=== PATIENT | female | born 1990 | race Caucasian/White ===

== ENCOUNTER → 2018-01-27 | Outpatient (CLI) | payer MEDICARE, OTHER ==
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
[2018-01-27 14:07] LABS: HCT 39.3 % (34.0-46.0); HGB 12.8 gm/dL (11.4-16.0); MCH 28.2 pg (25.0-35.0); MCHC 32.6 g/dL (31.0-37.0); MCV 86.6 fL (80.0-100.0); Mean Platelet Volume 7.5; Platelet Count 249 k/uL (150-450); RBC 4.54 m/uL (3.80-5.40); WBC 7.6 k/uL (3.8-10.6)
[2018-01-27 14:12] LABS: ALT 29 U/L (9-52); AST 14 U/L (14-36); Albumin 3.8 g/dL (3.5-5.0); Alkaline Phosphatase 68 U/L (38-126); Anion Gap 8 mmol/L; Blood Urea Nitrogen 12 mg/dL (7-17); Calcium 9.2 mg/dL (8.4-10.2); Carbon Dioxide 27 mmol/L (22-30); Chloride 104 mmol/L (98-107); Cholesterol 149 mg/dL (<200); Glucose 88 mg/dL (74-99); HDL Cholesterol 49 mg/dL (40-60); LDL Cholesterol,Calculated 91 mg/dL (0-99); Potassium 4.6 mmol/L (3.5-5.1); Sodium 139 mmol/L (137-145); Total Bilirubin 0.8 mg/dL (0.2-1.3); Total Protein 6.3 g/dL (6.3-8.2); Triglycerides 44 mg/dL (<150)
[2018-01-27 15:19] VITALS: BP 104/72; PULSE 72; TEMP 98.2; BMI 61.6
[2018-01-27 18:39] LABS: Iron Saturation 33.83 (12.00-45.00)
[2018-01-27 18:44] LABS: Vitamin D 25 Hydroxy 17.6 ng/mL (30.0-100.0)
[2018-01-27 19:29] LABS: Hemoglobin A1C 5.1 % (4.0-6.0)
== END | disposition home or self-care (01) ==
LOC: BARWHC3 10:29
PROVIDERS: ATTEND Surgery Plastic and Reconstructive Surgery
DX: E66.01 Morbid (severe) obesity due to excess calories (principal); E88.81 Metabolic syndrome and other insulin resistance; E44.0 Moderate protein-calorie malnutrition; E21.1 Secondary hyperparathyroidism, not elsewhere classified; D50.9 Iron deficiency anemia, unspecified; E55.9 Vitamin D deficiency, unspecified; Z68.43 Body mass index [BMI] 50.0-59.9, adult; I11.9 Hypertensive heart disease without heart failure; G47.33 Obstructive sleep apnea (adult) (pediatric); K90.9 Intestinal malabsorption, unspecified; K74.1 Hepatic sclerosis; N19 Unspecified kidney failure; K50.90 Crohn's disease, unspecified, without complications
CPT/HCPCS: 84425; 80061; 80053; 82607; 82728; 82746; 83540; 83550; 84443; 85027; 82306; 83036; 93005; 36415; G0463; 99211

== ENCOUNTER 2021-12-29 06:52 | Day surgery (SDC) | payer MEDICARE, OTHER ==
[2021-12-25 14:29] VITALS: BMI 60.0
[2021-12-29] MEDS ORDERED: LACTATED RINGERS 1,000 ML IV SCH (06:54)
[2021-12-29] MEDS ORDERED: LIDOCAINE 1% (10MG/ML) FOR IV START INTRADERMA ONE (07:17)
[2021-12-29 07:28] LABS: Glucose,Whole Blood 98 mg/dL (75-99)
[2021-12-29 07:29] VITALS: TEMP 97.3
[2021-12-29] MEDS ORDERED: PROPOFOL 10 MG/ML 20 ML VIAL IV ONE (07:35)
[2021-12-29] MEDS ORDERED: MIDAZOLAM 2 MG/2 ML VIAL ONE (07:35)
[2021-12-29] MEDS ORDERED: GLYCOPYRROLATE 0.2 MG/ML 2 ML VIAL ONE (07:35)
[2021-12-29] MEDS ORDERED: KETAMINE 10 MG/ML 20 ML VIAL ONE (07:35)
[2021-12-29] MEDS ORDERED: LIDOCAINE 2% INJ 20 MG/ML (2 ML VIAL) ONE (07:35)
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
--- NOTE | 2021-12-29 07:51 | P.PCN ---
Date of Procedure: 12/29/21 Description of Procedure: PREOPERATIVE DIAGNOSIS: Gastroesophageal reflux disease. Morbid obesity. POSTOPERATIVE DIAGNOSIS: Gastroesophageal reflux disease. Morbid obesity. Gastritis. Gastroparesis OPERATION: Esophagogastroduodenoscopy with biopsies along antrum and duodenum SURGEON: Sulema Concepcion MD ANESTHESIA: MAC. INDICATIONS: The patient is a 31-year-old female who presents with reflux disease. Benefits and risks of the procedure were described. Informed consent was obtained. DESCRIPTION: The patient was brought into the endoscopy suite and laid in the left lateral decubitus position. An Olympus gastroscope was passed along the posterior oropharynx down to the distal esophagus where the squamocolumnar junction was encountered at 35 cm from the incisors. The stomach was entered and no bile reflux was found. Additional findings are listed below. Biopsies with cold forceps were obtained of the antrum. The first through third portion of the duodenum was examined. Retroflexion of the scope confirmed for Hill grade was obstructed by moderate retained food. The squamocolumnar junction demonstrated LA grade A erosive esophagitis. The stomach was desufflated. The patient tolerated the procedure well. FINDINGS: Squamocolumnar junction 35 cm from the incisors. Diaphragmatic hiatus at 35 cm. Moderate retained food within stomach consistent with gastroparesis Hill grade lower esophageal valve unable to determine due to moderate retained food LA grade A erosive esophagitis. Biopsies obtained for celiac disease of duodenum Chronic gastritis RECOMMENDATIONS: Upper endoscopy as needed. Reglan 10 mg 3 times daily Plan - Discharge Summary New Discharge Prescriptions: New Metoclopramide [Reglan] 10 mg PO ACHS #30 tab Continue Furosemide [Lasix] 20 mg PO DAILY Cholecalciferol (Vitamin D3) [Vitamin D3 (125 MCG = 5,000 IU)] 5,000 mcg PO DAILY Ferrous Sulfate [Iron (65 MG Elemental)] 325 mg PO DAILY Omeprazole 20 mg PO DAILY Nortriptyline [Pamelor] 25 mg PO HS acetaZOLAMIDE [Diamox Sequels] 500 mg PO BID metFORMIN HCL 500 mg PO BID Rimegepant Sulfate [Nurtec Odt] 75 mg PO DAILY Fluticasone Nasal [place] [Flonase Nasal [place]] 1 spray EA NOSTRIL DAILY Discontinued Pantoprazole [Protonix] 40 mg PO BID Discharge Medication List Furosemide [Lasix] 20 mg PO DAILY 03/24/18 [History] Cholecalciferol (Vitamin D3) [Vitamin D3 (125 MCG = 5,000 IU)] 5,000 mcg PO DAILY 11/26/21 [History] Ferrous Sulfate [Iron (65 MG Elemental)] 325 mg PO DAILY 11/26/21 [History] Fluticasone Nasal [place] [Flonase Nasal [place]] 1 spray EA NOSTRIL DAILY 11/26/21 [History] Nortriptyline [Pamelor] 25 mg PO HS 11/26/21 [History] Omeprazole 20 mg PO DAILY 11/26/21 [History] Rimegepant Sulfate [Nurtec Odt] 75 mg PO DAILY 11/26/21 [History] acetaZOLAMIDE [Diamox Sequels] 500 mg PO BID 11/26/21 [History] metFORMIN HCL 500 mg PO BID 11/26/21 [History] Metoclopramide [Reglan] 10 mg PO ACHS #30 tab 12/29/21 [Rx] Follow up [facility]ment(s[facility]Ref[facility] [place] [facility] - [facility]22 Patient Instructions/Handouts: Gastroparesis (GEN), Diabetic Gastroparesis (GEN) Discharge Disposition: HOME SELF-CARE
[2021-12-29 08:13] VITALS: BP 119/77; PULSE 89; RESP 20
== END 2021-12-29 08:23 | disposition home or self-care (01) ==
LOC: ORWHC2ENDO 06:52
PROVIDERS: ATTEND Surgery Plastic and Reconstructive Surgery
DX: K21.00 Gastro-esophageal reflux disease with esophagitis, without bleeding (principal); K29.50 Unspecified chronic gastritis without bleeding; K31.84 Gastroparesis; E11.43 Type 2 diabetes mellitus with diabetic autonomic (poly)neuropathy; E66.01 Morbid (severe) obesity due to excess calories; F70 Mild intellectual disabilities; I10 Essential (primary) hypertension; Z82.49 Family history of ischemic heart disease and other diseases of the circulatory system; Z83.3 Family history of diabetes mellitus; Z79.84 Long term (current) use of oral hypoglycemic drugs
CPT/HCPCS: 43239; 81025; 88305; J2250; J2704; J2001

== ENCOUNTER → 2022-01-14 | Outpatient (CLI) | payer MEDICARE, OTHER | END | disposition home or self-care (01) | LOC: LABPAT 14:45 | PROVIDERS: ATTEND Surgery Plastic and Reconstructive Surgery | DX: Z01.812 Encounter for preprocedural laboratory examination (principal); E08.8 Diabetes mellitus due to underlying condition with unspecified complications | CPT/HCPCS: 36415; 83036 ==

== ENCOUNTER → 2022-01-14 | Outpatient (CLI) | payer MEDICARE, OTHER ==
[2022-01-14 14:09] VITALS: BP 143/83; PULSE 90; TEMP 98.4; BMI 63.5
--- NOTE | 2022-01-14 14:33 | P.BASOAP ---
Subjective Progress Note Date: 01/14/22 EKG is abnormal. Labs reviewed. She is looking into the sleeve. She has gastroparesis. Needs Hgb A1c. Objective - Vital Signs Vital signs: Vital Signs Temp 98.4 F 01/14/22 13:49 Pulse 90 01/14/22 13:49 Resp BP 143/83 01/14/22 13:49 Pulse Ox FiO2 Intake & Output 01/13/22 01/14/22 01/14/22 18:59 06:59 18:59 Weight 137.892 kg Assessment/Plan Plan: Date: 01/14/22 Initial Weight: 133.81 kg Initial BMI: 61.6 Current Weight: 137.892 kg Current BMI: 63.5 Type of Surgery: Total Volume in Band: Previous Volume: Volume Removed: Volume Added: Band Size:
== END | disposition home or self-care (01) ==
LOC: BARWHC3 13:49
PROVIDERS: ATTEND Surgery Plastic and Reconstructive Surgery
DX: R94.31 Abnormal electrocardiogram [ECG] [EKG] (principal)
CPT/HCPCS: 99211

== ENCOUNTER → 2022-04-20 | Outpatient (CLI) | payer MEDICARE, OTHER ==
[2022-04-20 11:06] VITALS: BMI 62.4
== END | disposition home or self-care (01) ==
LOC: BARWHC3 08:36
PROVIDERS: ATTEND Surgery Plastic and Reconstructive Surgery
DX: E66.01 Morbid (severe) obesity due to excess calories (principal); Z71.3 Dietary counseling and surveillance
CPT/HCPCS: 97804

== ENCOUNTER 2022-10-19 09:30 | Inpatient (IN) | payer MEDICARE, OTHER ==
--- NOTE | 2022-10-02 15:01 | P.PN ---
Progress Note - Text Progress Note Date: 10/02/22 Patient notified personally by me for change of date of surgery from October 19.
[2022-11-16] MEDS ORDERED: ceFAZolin 3 GM in SODIUM CHLORIDE 0.9% 100 ML IVPB PRN (05:00)
[2022-11-16] MEDS ORDERED: ENOXAPARIN 40 MG/0.4 ML SYRINGE SQ PRN (07:00)
[2022-11-16] MEDS ORDERED: CHLORHEXIDINE GLUCONATE 15 ML CUP MUCOUS MEM PRN (07:00)
[2022-11-16] MEDS ORDERED: PANTOPRAZOLE 40 MG/10 ML VIAL IVP PRN (07:00)
[2022-11-16] MEDS ORDERED: ONDANSETRON 4 MG/2 ML VIAL IVP ONE (08:24)
[2022-11-16] MEDS ORDERED: DEXAMETHASONE SOD PHOSPHATE 4 MG/ML 1 ML VIAL IV ONE (08:24)
[2022-11-16] MEDS ORDERED: HYDROmorphone 0.5 MG/0.5 ML SYRINGE IVP PRN (08:24)
[2022-11-16] MEDS ORDERED: LACTATED RINGERS 1,000 ML IV ONE ×3 (09:45→12:01)
[2022-11-16] MEDS ORDERED: SCOPOLAMINE 1 MG/72 HR PATCH TRANSDERM STA (09:57)
[2022-11-16 10:14] LABS: Glucose,Whole Blood 100 mg/dL (70-110)
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
[2022-11-16] MEDS ORDERED: HYDROmorphone (PF) 1 MG/ML ONE (11:07)
[2022-11-16] MEDS ORDERED: ROCURONIUM 10 MG/ML (5 ML VIAL) IV ONE (11:07)
[2022-11-16] MEDS ORDERED: PROPOFOL 10 MG/ML 20 ML VIAL IV ONE (11:07)
[2022-11-16] MEDS ORDERED: KETOROLAC 15 MG/ML 1 ML VIAL ONE (11:07)
[2022-11-16] MEDS ORDERED: GLYCOPYRROLATE 0.2 MG/ML 2 ML VIAL ONE (11:07)
[2022-11-16] MEDS ORDERED: MIDAZOLAM 2 MG/2 ML VIAL ONE (11:07)
[2022-11-16] MEDS ORDERED: fentaNYL (PF) 50 MCG/ML 2 ML AMP ONE (11:07)
[2022-11-16] MEDS ORDERED: LIDOCAINE 2% INJ 20 MG/ML (2 ML VIAL) ONE (11:07)
[2022-11-16] MEDS ORDERED: SUCCINYLCHOLINE CHLORIDE 200 MG/10 ML VIAL IV ONE (11:07)
[2022-11-16] MEDS ORDERED: NEOSTIGMINE 1 MG/ML 10 ML VIAL ONE (11:07)
[2022-11-16] MEDS ORDERED: BUPIVACAIN-EPI 0.25%-1:200,000 30 ML VIAL SQ ONE ×2 (11:32→11:43)
[2022-11-16] MEDS ORDERED: NALOXONE 0.4 MG/ML 1 ML VIAL IV PRN ×2 (13:33→13:37)
[2022-11-16] MEDS ORDERED: HYDROmorphone 1 MG/ML 1 ML SYRINGE IVP PRN (13:34)
[2022-11-16] MEDS ORDERED: SODIUM CHLORIDE 0.9% 2,000 ML IV ONE (13:38)
--- NOTE | 2022-11-16 13:45 | P.OP ---
Date of Procedure: 11/16/22 Description of Procedure: SURGEON: WILLAM DENISE MD PREOPERATIVE DIAGNOSES: 1. Morbid obesity due to excess calories. 2. Body mass index reduced 69.6 to 64.8 3. Chronic lower back pain. 4. Hypertensive heart disease 5. Obstructive sleep apnea. 6. Generalized anxiety disorder 7. Depressive disorder 8. Osteoarthritis, generalized 9. Dietary surveillance and counseling. 10. Family history of morbid obesity. 11. Family history of diabetes type 1. 12. Family history of diabetes type 2. 13. Family history of heart attack. 14. Vitamin D deficiency 15. Cognitive delay 16. Lymphedema 17. Diabetes type II non-insulin dependent 18. Migraines 19. Gastroparesis 20. Iron deficiency 21. Zinc deficiency 22. Hyperparathyroidism 23. Hypoalbuminemia 24. Nicotine exposure POSTOPERATIVE DIAGNOSES: 1. Morbid obesity due to excess calories. 2. Body mass index reduced 69.6 to 64.8 3. Chronic lower back pain. 4. Hypertensive heart disease 5. Obstructive sleep apnea. 6. Generalized anxiety disorder 7. Depressive disorder 8. Osteoarthritis, generalized 9. Dietary surveillance and counseling. 10. Family history of morbid obesity. 11. Family history of diabetes type 1. 12. Family history of diabetes type 2. 13. Family history of heart attack. 14. Vitamin D deficiency 15. Cognitive delay 16. Lymphedema 17. Diabetes type II non-insulin dependent 18. Migraines 19. Gastroparesis 20. Iron deficiency 21. Zinc deficiency 22. Hyperparathyroidism 23. Hypoalbuminemia 24. Nicotine exposure OPERATION: 1. Robotic assisted daVinci Xi laparoscopic sleeve gastrectomy with 40-Stateless bougie, multiport. 2. Intraoperative esophagogastroduodenoscopy. ANESTHESIA: Gen. local anesthetic ESTIMATED BLOOD LOSS: 50 mL SPECIMENS REMOVED: Sleeve gastrectomy COMPLICATIONS: None. FINDINGS: 1. Negative intraoperative esophagogastrojejunoscopy leak test. 2. No hepatomegaly and no large hiatus hernia. 3. Total of 6 staplers used including 1 - 60 mm black robot rcik, 1 - 60 mm green robot, 3 - 60 mm blue robot, 1 - 60 mm white loads used to create the gastric sleeve. 4. Sleeve gastrectomy, 27 x 6 cm INDICATIONS: Maty Madden is a 32-year-old female who presents with lifelong morbid obesity. She has developed type II diabetes, lymphedema, including obstructive sleep apnea. She has new diagnosis of gastroparesis. She is looking into the sleeve gastrectomy. At her of 4 foot 10, her ideal body weight is 118 pounds. Her highest weight is 332 pounds. Her body mass index is 69.6. She is 214 pounds overweight. All surgical options for morbid obesity had been described using the [place] bariatric surgery collaborative comorbidity resolution including complication risk score. A second-generation bariatric consent form was described in detail including the possibility of protein malnutrition, leaks, gastric stricture, venous thrombosis, gastroesophageal reflux disease, need for further surgery for which she demonstrated understanding. Benefits and risks of the procedure were described at length. Informed consent was obtained. DESCRIPTION: The patient was brought into the operating room theater. Preoperatively she had received Lovenox subcutaneously for DVT prophylaxis. Additionally she had Peridex oral solution as an oral decontaminant. After general induction, the abdomen was prepped and draped in standard sterile fashion. An Ioban draping was placed along the abdomen. A robotic da Venu Xi system was prepped and primed. At 15 cm from the xiphoid, proposed port sites were marked with indelible marker along the anterior axillary line bilaterally, mid axillary line bilaterally with each ports were marked 10 to 15 cm from each other. The robotic stapler port was marked for the right midclavicular line. A 5 mm 0 degrees laparoscopic trocar entry was performed along the left upper quadrant. The abdomen was insufflated to 15 mmHg pressure was tolerated well. Diagnostic laparoscopy demonstrated no injury to bowel, viscera, or mesentery. No evidence of large hiatus hernia was identified. The liver edge was sharp consistent with 2 week low-carb high-protein diet. A 8 mm port was placed along the left upper abdominal wall after exchanging the 5 mm port. A separate 8 mm port was placed along the left lateral abdominal wall. Please note that the ports were placed at least 20 cm away from the target anatomy. Care was taken to check each robotic arms were safely away from collision with the bed or the patient. At the epigastrium, a medium sized Marquez liver retractor was placed under direct visualization with the Iron Proofsheet Corrector placed under the right shoulder of the patient. Next, 12-mm robot stapler port was placed along the right upper quadrant. The camera 8-mm port was maintained along the epigastrium. The patient was repositioned in reverse Trendelenburg position at 21-degrees after lowering the bed. The robot was docked along the left side of the patient. Using a grasper for arm 4, a vessel sealer for arm 3, including grasper for arm 1, the robotic system was docked and primed as described. Instruments were interchanged by the engineer third assistant for stapler loads. The camera was placed at 30- degrees down. I had sat at the console. The pylorus was identified and 6 cm proximally along the greater curvature of the stomach, the short gastrics were mobilized upwards to the angle of His using a vessel sealer. Hemostasis was excellent during this portion of the procedure. Next, the upper pole of the stomach was adherent to the left lucia, which was gently dissected free using atraumatic grasper. I went to the head of the bed and placed 40-Stateless blunt bougie into the s tomach. The bougie was readjusted by the nurse heel dipper. Robotic stapler black load 60 mm 1 followed by green 60 mm x 1, blue 60 mm x 3, white 60 mm x 1 loads were used to create the sleeve. Initial firing was across the antrum of the stomach towards the angle of His. The staple line was linear without corkscrewing. The space from the angularis incisura of the sleeve was approximately 4 cm. I then went to the head of the bed to perform the intraoperative esophagogastroduodenoscopy leak test. The bougie was withdrawn. The upper pole of the stomach was bathed using normal saline solution. The scope was withdrawn with careful inspection along the staple line for which no leaks were found along the entire length. Additionally,the sleeve was completely hemostatic without any encroachment along the angularis incisura. Its topology was a soft "J". No stricture was encountered upon placement of the scope. The GI tract was desufflated. The patient tolerated this portion of the procedure well. The scope was completely withdrawn. The robot was undocked. I then rescrubbed into case, whereby the irrigation fluid was aspirated from the abdominal cavity. Tisseel fibrin sealant was placed along the entire staple length. Once dried the Marquez liver retractor was removed. The skin had moderate oozing from incisions increasing her blood loss. Staple line was hemostatic. Attention was now brought to removal of the specimen. The distal end of the sleeve gastrectomy specimen was brought out through the 12 mm port at the left upper quadrant. The specimen was gently removed en total. No contamination had occurred during this process. All instruments and pneumoperitoneum including irrigation fluid was removed from the abdominal cavity. The 12 mm port site was closed using 0-Vicryl and Stefan Ballard and irrigated with diluted hydrogen peroxide. The final incisions were closed using subcuticular interrupted suture of 4-0 Monocryl. Exofin was applied to the skin once the skin had been cleansed. OptiFoam dressing was placed along the stomach extraction site. The sleeve specimen was measured and checked also for leaks which none were found. At the end of the procedure, needle, sponge, and instrument count was verified correct by the surgical instrument repair specialist. The patient was taken to the postanesthesia care unit in stable condition. She had tolerated the procedure well. Intraoperative films and findings were reviewed with the patient's family.
[2022-11-16] MEDS ORDERED: SODIUM CHLORIDE 0.9% 1,000 ML IV ONE ×2 (14:29)
[2022-11-16] MEDS: LACTATED RINGERS 1,000 ML IV SCH (15:29)
[2022-11-16] MEDS: METOCLOPRAMIDE 5 MG/ML 2 ML VIAL IVP SCH ×3 (15:37→23:41)
[2022-11-16] MEDS: 0.9% NACL WITH KCL 20 MEQ/L 1,000 ML IV SCH ×2 (15:41→23:38)
[2022-11-16] MEDS: fentaNYL PCA 500 MCG/50 ML BAG IV SCH (15:41)
[2022-11-16] MEDS: ALBUTEROL NEBULIZED 2.5 MG/3 ML INHALATION SCH ×2 (16:28→21:43)
[2022-11-16 16:39] LABS: Glucose,Whole Blood 134 mg/dL (70-110)
[2022-11-16] MEDS ORDERED: DEXAMETHASONE SOD PHOSPHATE 10 MG/ML 1 ML VIAL IVP ONE (17:00)
[2022-11-16] MEDS: ACETAMINOPHEN IV (For NPO) 1,000 MG in EMPTY BAG 1 BAG IVPB SCH ×2 (18:12→23:39)
[2022-11-16] MEDS: ONDANSETRON 4 MG/2 ML VIAL IVP SCH ×2 (18:13→23:41)
[2022-11-16] MEDS: SIMETHICONE 40 MG/0.6 ML DROPS 2,000 MG/30 ML BOTTLE PO SCH ×2 (18:13→23:39)
[2022-11-16] MEDS ORDERED: ceFAZolin 3 GM in SODIUM CHLORIDE 0.9% 100 ML IVPB SCH (19:00)
[2022-11-16] MEDS: PANTOPRAZOLE 40 MG/10 ML VIAL IV SCH (21:04)
[2022-11-16] MEDS: DEXAMETHASONE SOD PHOSPHATE 4 MG/ML 1 ML VIAL IVP SCH (23:41)
[2022-11-16] MEDS: PATIENT'S OWN (Rimegepant Sulfate [Nurtec Odt] 75 MG Tablet) PO SCH (23:54)
[2022-11-17] MEDS: ACETAMINOPHEN IV (For NPO) 1,000 MG in EMPTY BAG 1 BAG IVPB SCH ×2 (05:29→12:15)
[2022-11-17] MEDS: METOCLOPRAMIDE 5 MG/ML 2 ML VIAL IVP SCH ×2 (05:30→12:16)
[2022-11-17] MEDS: DEXAMETHASONE SOD PHOSPHATE 4 MG/ML 1 ML VIAL IVP SCH ×2 (05:30→12:16)
[2022-11-17] MEDS: ONDANSETRON 4 MG/2 ML VIAL IVP SCH ×2 (05:30→12:16)
[2022-11-17] MEDS: 0.9% NACL WITH KCL 20 MEQ/L 1,000 ML IV SCH (05:32)
[2022-11-17 07:16] VITALS: RESP 17
[2022-11-17] MEDS ORDERED: 0.9% NACL WITH KCL 20 MEQ/L 1,000 ML IV SCH (08:00)
[2022-11-17] MEDS: ALBUTEROL NEBULIZED 2.5 MG/3 ML INHALATION SCH ×3 (08:36→15:51)
[2022-11-17] MEDS ORDERED: ENOXAPARIN 40 MG/0.4 ML SYRINGE SQ SCH (09:00)
[2022-11-17] MEDS ORDERED: FLUTICASONE 50MCG/SPRAY NASAL 16GM EA NOSTRIL SCH (09:00)
[2022-11-17] MEDS: PANTOPRAZOLE 40 MG/10 ML VIAL IV SCH (09:32)
[2022-11-17] MEDS: SIMETHICONE 40 MG/0.6 ML DROPS 2,000 MG/30 ML BOTTLE PO SCH ×2 (09:32→12:17)
[2022-11-17] MEDS: LACTATED RINGERS 1,000 ML IV SCH (09:33)
[2022-11-17] MEDS: PATIENT'S OWN (Rimegepant Sulfate [Nurtec Odt] 75 MG Tablet) PO SCH (09:33)
[2022-11-17 10:47] LABS: Basophils # (A) 0.01 X 10*3/uL (0.00-0.10); Basophils % (A) 0.1 %; Eosinophils # (A) 0 X 10*3/uL (0.04-0.35); Eosinophils % (A) 0 %; HCT 41.5 % (37.2-46.3); HGB 12.8 g/dL (12.0-15.0); Immature Grans, Automated 0.2 %; Lymphocytes # (A) 0.83 X 10*3/uL (0.90-5.00); Lymphocytes % (A) 6.6 %; MCH 27.7 pg (27.0-32.0); MCHC 30.8 g/dL (32.0-37.0); MCV 89.8 fL (80.0-97.0); Mean Platelet Volume 11.9 fL (9.5-12.2); Monocytes # (A) 0.21 X 10*3/uL (0.20-1.00); Monocytes % (A) 1.7 %; NRBC Per 100 WBC 0 /100 WBCS (0.0-0.0); Neutrophils # (A) 11.54 X 10*3/uL (1.80-7.70); Neutrophils % (A) 91.4 %; Platelet Count 223 X 10*3/uL (140-440); RBC 4.62 X 10*6/uL (4.10-5.20); RDW 13.8 % (11.5-14.5); WBC 12.62 X 10*3/uL (4.50-10.00)
[2022-11-17 10:57] LABS: African American GFR (CKD) 138.8 (60.0-200.0); Anion Gap 13.6 mmol/L (10.00-18.00); Blood Urea Nitrogen 5.4 mg/dL (9.0-27.0); Calcium 8.5 mg/dL (8.7-10.3); Carbon Dioxide 19.4 mmol/L (20.0-27.5); Non-African American GFR(CKD) 119.8 (60.0-200.0); Potassium 4.4 mmol/L (3.5-5.5)
[2022-11-17 10:58] LABS: Magnesium 1.7 mg/dL (1.5-2.4)
--- NOTE | 2022-11-17 11:46 | FL ---
EXAMINATION TYPE: FL UGI DATE OF EXAM: 11/17/2022 10:51 AM CLINICAL INDICATION:Male, 31 years old with history of Post Op Bariatric Surgery; COMPARISON: CT 08/05/2022 TECHNIQUE: Limited single contrast UGI study is performed with Isovue-370. 50 cc of Isovue-370 Fluoroscopic time: 4 seconds Fluoroscopic images: 0 Radiographs taken: 50 DAP: 4004.46 TECHNIQUE: Limited single contrast UGI study is performed with Isovue-370. FINDINGS: The stomach demonstrates a postsurgical morphology. No extravasation of contrast identifie d. No evidence of mass or ulcer disease. The duodenal bulb and sweep are unremarkable. IMPRESSION: Postsurgical changes without evidence of contrast extravasation.
[2022-11-17 12:24] VITALS: BMI 64.8
[2022-11-17 14:56] VITALS: BP 123/61; TEMP 97.3
[2022-11-17] MEDS: fentaNYL PCA 500 MCG/50 ML BAG IV SCH (15:11)
--- NOTE | 2022-11-17 15:41 | P.DS ---
Providers Date of admission: 11/16/22 09:11 Expected date of discharge: 11/17/22 Attending physician: Sulema Concepcion Primary care physician: Oswaldo Salamanca Hospital Course: Discharge diagnosis 1. Morbid obesity due to excess calories. 2. Body mass index reduced 69.6 to 64.8 3. Chronic lower back pain. 4. Hypertensive heart disease 5. Obstructive sleep apnea. 6. Generalized anxiety disorder 7. Depressive disorder 8. Osteoarthritis, generalized 9. Dietary surveillance and counseling. 10. Family history of morbid obesity. 11. Family history of diabetes type 1. 12. Family history of diabetes type 2. 13. Family history of heart attack. 14. Vitamin D deficiency 15. Cognitive delay 16. Lymphedema 17. Diabetes type II non-insulin dependent 18. Migraines 19. Gastroparesis 20. Iron deficiency 21. Zinc deficiency 22. Hyperparathyroidism 23. Hypoalbuminemia 24. Nicotine exposure 25. Leukocytosis likely reactive from steroids Hospital course Maty Madden is a 32-year-old female who presents with lifelong morbid obesity. She has developed type II diabetes, lymphedema, including obstructive sleep apnea. She has new diagnosis of gastroparesis. Patient is status post robotic- assisted laparoscopic sleeve gastrectomy. Upper GI shows no evidence of leak or obstruction. She is tolerating diet. She is afebrile. She has been up and ambulating. Denies any difficulty urinating. She is stable for discharge. Physician Theoretical Physicist note has been reviewed by physician. Signing provider agrees with the documented findings, assessment, and plan of care. Patient Condition at Discharge: Stable Plan - Discharge Summary Discharge Rx Participant: Yes New Discharge Prescriptions: New bisacodyL [Dulcolax] 5 mg PO DAILY PRN #10 tab PRN Reason: Constipation Omeprazole [PriLOSEC] 40 mg PO DAILY #30 cap Ondansetron Odt [Zofran Odt] 4 mg PO Q8HR PRN #9 tab PRN Reason: Nausea Simethicone 40 mg/0.6 ml Drops [Mylicon Drops] 40 mg PO PCHS PRN #30 ml PRN Reason: Gas Acetaminophen Tab [Tylenol] 1,000 mg PO Q6HR PRN #30 tablet PRN Reason: Pain Continue acetaZOLAMIDE [Diamox Sequels] 500 mg PO BID metFORMIN HCL 500 mg PO BID Rimegepant Sulfate [Nurtec Odt] 75 mg PO BID Fluticasone Nasal [place] [Flonase Nasal [place]] 1 spray EA NOSTRIL DAILY diphenhydrAMINE [Benadryl] 25 mg PO BID PRN PRN Reason: allergies Discontinued Furosemide [Lasix] 20 mg PO DAILY Pantoprazole [Protonix] 40 mg PO DAILY Discharge Medication List Fluticasone Nasal [place] [Flonase Nasal [place]] 1 spray EA NOSTRIL DAILY 11/26/21 [History] Rimegepant Sulfate [Nurtec Odt] 75 mg PO BID 11/26/21 [History] acetaZOLAMIDE [Diamox Sequels] 500 mg PO BID 11/26/21 [History] metFORMIN HCL 500 mg PO BID 11/26/21 [History] diphenhydrAMINE [Benadryl] 25 mg PO BID PRN 11/13/22 [History] Acetaminophen Tab [Tylenol] 1,000 mg PO Q6HR PRN #30 tablet 11/17/22 [Rx] Omeprazole [PriLOSEC] 40 mg PO DAILY #30 cap 11/17/22 [Rx] Ondansetron Odt [Zofran Odt] 4 mg PO Q8HR PRN #9 tab 11/17/22 [Rx] Simethicone 40 mg/0.6 ml Drops [Mylicon Drops] 40 mg PO PCHS PRN #30 ml 11/17/22 [Rx] bisacodyL [Dulcolax] 5 mg PO DAILY PRN #10 tab 11/17/22 [Rx] Follow up Appointment(s)/Referral(s): [place], [place] [NON-STAFF] - 11/20/22 12:00 pm Activity/Diet/Wound Care/Special Instructions: Liquid diet only for 2 weeks No lifting over 4 pounds in 4 weeks May Shower. No soaking in bath tubs for 2 weeks Please notify your surgeon if you develop nausea and vomiting including new onset of abdominal pain. Continue to use incentive spirometry to prevent pneumonias. Please continue to ambulate at home to prevent blood clots in legs. Follow-up at the bariatric center. May shower. Dressings to be discontinued by surgeon in the office. Drink 64 oz of fluid daily. Start protein shakes on . Notify bariatric center for temp over 101.0, increased pain, drainage from incisions. No straws or carbonated beverages. Liquid diet only. Sugar content should be less than 6 g to avoid dumping syndrome. Take MOM for constipation. CRUSH, OPEN, OR CUT TABLETS LARGER THAN A SIZE OF A TIC TAC Discharge Disposition: HOME SELF-CARE
[2022-11-17 16:02] VITALS: PULSE 94
== END 2022-11-17 18:02 | disposition home or self-care (01) | DRG 621 ==
LOC: 2ORMAIN 11-16 09:11 → 4SSUR 11-16 14:16
PROVIDERS: ADMIT Surgery Plastic and Reconstructive Surgery; ATTEND Surgery Plastic and Reconstructive Surgery
PROC: 8E0W4CZ Robotic Assisted Procedure of Trunk Region, Percutaneous Endoscopic Approach (ICD-10-PCS; 2022-11-16)
PROC: 0DJ08ZZ Inspection of Upper Intestinal Tract, Via Natural or Artificial Opening Endoscopic (ICD-10-PCS; 2022-11-16)
PROC: 0DB64Z3 Excision of Stomach, Percutaneous Endoscopic Approach, Vertical (ICD-10-PCS; principal; 2022-11-16 10:45)
DX: E66.01 Morbid (severe) obesity due to excess calories (principal); Z68.44 Body mass index [BMI] 60.0-69.9, adult; I10 Essential (primary) hypertension; D72.829 Elevated white blood cell count, unspecified; E11.43 Type 2 diabetes mellitus with diabetic autonomic (poly)neuropathy; E21.3 Hyperparathyroidism, unspecified; T38.0X5A Adverse effect of glucocorticoids and synthetic analogues, initial encounter; E55.9 Vitamin D deficiency, unspecified; E60 Dietary zinc deficiency; E61.1 Iron deficiency; E88.09 Other disorders of plasma-protein metabolism, not elsewhere classified; F32.A Depression, unspecified; F41.1 Generalized anxiety disorder; G47.33 Obstructive sleep apnea (adult) (pediatric); F81.9 Developmental disorder of scholastic skills, unspecified; M54.50 Low back pain, unspecified; G43.909 Migraine, unspecified, not intractable, without status migrainosus; G89.29 Other chronic pain; I89.0 Lymphedema, not elsewhere classified; K31.84 Gastroparesis; M15.9 Polyosteoarthritis, unspecified; X58.XXXA Exposure to other specified factors, initial encounter; Z79.899 Other long term (current) drug therapy; Z79.84 Long term (current) use of oral hypoglycemic drugs; Z71.3 Dietary counseling and surveillance
CPT/HCPCS: 74240; 80051; 81025; 82310; 82565; 83735; 84100; 84520; 85025; 86850; 86900; 86901; 88307; 94640; 94760

== ENCOUNTER → 2022-11-10 | Outpatient (CLI) | payer MEDICARE, OTHER ==
[2022-11-10 15:53] LABS: Basophils # (A) 0.05 X 10*3/uL (0.00-0.10); Basophils % (A) 0.5 %; Eosinophils # (A) 0.19 X 10*3/uL (0.04-0.35); Eosinophils % (A) 1.8 %; HCT 46.1 % (37.2-46.3); HGB 14.6 g/dL (12.0-15.0); Immature Grans, Automated 0.4 %; Lymphocytes # (A) 2.05 X 10*3/uL (0.90-5.00); Lymphocytes % (A) 19.6 %; MCH 28.1 pg (27.0-32.0); MCHC 31.7 g/dL (32.0-37.0); MCV 88.7 fL (80.0-97.0); Mean Platelet Volume 11.2 fL (9.5-12.2); Monocytes # (A) 0.67 X 10*3/uL (0.20-1.00); Monocytes % (A) 6.4 %; NRBC Per 100 WBC 0 /100 WBCS (0.0-0.0); Neutrophils # (A) 7.45 X 10*3/uL (1.80-7.70); Neutrophils % (A) 71.3 %; Platelet Count 250 X 10*3/uL (140-440); RDW 13.7 % (11.5-14.5); WBC 10.45 X 10*3/uL (4.50-10.00)
[2022-11-10 16:20] LABS: African American GFR (CKD) 112.3 (60.0-200.0); Albumin 4.6 g/dL (3.8-4.9); Albumin/Globulin Ratio 1.77 (1.60-3.17); BUN/Creat Ratio 18.5 Ratio (12.00-20.00); Blood Urea Nitrogen 14.8 mg/dL (9.0-27.0); Calcium 9.7 mg/dL (8.7-10.3); Globulin 2.6 g/dL (1.6-3.3); Non-African American GFR(CKD) 96.9 (60.0-200.0); Potassium 4.3 mmol/L (3.5-5.5); Total Bilirubin 0.4 mg/dL (0.30-1.20); Total Protein 7.2 g/dL (6.2-8.2)
== END | disposition home or self-care (01) ==
LOC: LABWHC1 11:03
PROVIDERS: ATTEND Surgery Plastic and Reconstructive Surgery
DX: Z01.812 Encounter for preprocedural laboratory examination (principal)
CPT/HCPCS: 36415; 80053; 85025

== ENCOUNTER → 2022-11-25 | Outpatient (CLI) | payer MEDICARE, OTHER ==
[2022-11-25 14:57] VITALS: BP 134/76; PULSE 84; TEMP 97.7; BMI 65.2
--- NOTE | 2022-11-25 15:24 | P.BASOAP ---
Subjective Progress Note Date: 11/25/22 DATE OF SERVICE: 11/25/2022 CHIEF COMPLAINT: Status post sleeve gastrectomy HISTORY OF PRESENT ILLNESS: Maty Madden is a 32-year-old female status post sleeve gastrectomy, 11/16/22. She is 2 weeks post op. She has sweling of the bilateral lower extremities. Her protein intake is 30 g to 75 grams daily. Activity after December 17. At her of 4 foot 10, her ideal body weight is 118 pounds. Her highest weight is 333 pounds, BMI 69.7. Today she comes in with 311 pounds from 314 pounds, 1 week ago. She has lost 3 pounds in 1 week. Her body mass index is 65.2. She is 193 pounds overweight. PHYSICAL EXAM: VITAL SIGNS: 4 feet 10 inches, 311 pounds. Body mass index 65.2 Vital Signs Temp 97.7 F 11/25/22 14:52 Pulse 84 11/25/22 14:52 Resp BP 134/76 11/25/22 14:52 Pulse Ox FiO2 GENERAL: Well-developed, pleasant female in no acute distress. HEENT: No scleral icterus. Extraocular movements were grossly intact. Moist buccal mucosa. NECK: Supple without lymphadenopathy. CHEST: Nonlabored respirations. Equal bilateral excursions. CARDIOVASCULAR: Regular rate and rhythm. 2+ radial pulses ABDOMEN: Protuberant, soft, nontender, nondistended. No infection. MUSCULOSKELETAL: Bilateral lower extremity edema 2+. No clubbing or cyanosis. NEURO: No focal or lateralizing signs. Cranial nerves II through XII grossly within normal limits. PSYCH: Flat affect. Alert and oriented to person, place, and time. SKIN: Well-perfused. Good skin turgor. ASSESSMENT: 1. Morbid obesity due to excess calories. 2. Body mass index 69.6 to 65.2 3. Chronic lower back pain. 4. Hypertension. 5. Obstructive sleep apnea. 6. Anxiety. 7. Depression. 8. Previous potential weight loss. 9. Dietary surveillance and counseling. 10. Family history of morbid obesity. 11. Family history of diabetes type 1. 12. Family history of diabetes type 2. 13. Family history of heart attack. 14. Vitamin D deficiency 15. Cognitive delay 16. Lymphedema 17. Diabetes type II non-insulin dependent 18. Migraines 19. Gastroparesis 20. Iron deficiency 21. Zinc deficiency 22. Hyperparathyroidism 23. Hypoalbuminemia 24. Nicotine exposure 25. Status post sleeve gastrectomy PLAN: 1. Recommend increase protein to 75 grams daily. 2. Recommend limit activity until after December 17. Objective - Vital Signs Vital signs: Vital Signs Temp 97.7 F 11/25/22 14:52 Pulse 84 11/25/22 14:52 Resp BP 134/76 11/25/22 14:52 Pulse Ox FiO2 Intake & Output 11/24/22 11/25/22 11/25/22 18:59 06:59 18:59 Weight 141.521 kg Assessment/Plan Plan: Date: 11/25/22 Initial Weight: 133.81 kg Initial BMI: 61.6 Current Weight: 141.521 kg Current BMI: 65.2 Type of Surgery: Total Volume in Band: Previous Volume: Volume Removed: Volume Added: Band Size:
== END ==
LOC: BARWHC3 14:25
PROVIDERS: ATTEND Surgery Plastic and Reconstructive Surgery
DX: E66.01 Morbid (severe) obesity due to excess calories (principal); Z71.3 Dietary counseling and surveillance; Z68.44 Body mass index [BMI] 60.0-69.9, adult; M54.50 Low back pain, unspecified; G89.29 Other chronic pain; G47.33 Obstructive sleep apnea (adult) (pediatric); I10 Essential (primary) hypertension; F41.9 Anxiety disorder, unspecified; F32.A Depression, unspecified; Z98.890 Other specified postprocedural states; Z86.73 Personal history of transient ischemic attack (TIA), and cerebral infarction without residual deficits; I89.0 Lymphedema, not elsewhere classified; Z79.4 Long term (current) use of insulin; G43.909 Migraine, unspecified, not intractable, without status migrainosus; Z98.84 Bariatric surgery status; R63.4 Abnormal weight loss; Z83.3 Family history of diabetes mellitus; E55.9 Vitamin D deficiency, unspecified; R41.89 Other symptoms and signs involving cognitive functions and awareness; K31.84 Gastroparesis; E61.1 Iron deficiency; E60 Dietary zinc deficiency; Z77.22 Contact with and (suspected) exposure to environmental tobacco smoke (acute) (chronic); E21.3 Hyperparathyroidism, unspecified; Z79.51 Long term (current) use of inhaled steroids
CPT/HCPCS: 97802; G0463; 99211

== ENCOUNTER → 2022-12-16 | Outpatient (CLI) | payer MEDICARE, OTHER ==
[2022-12-16 15:12] VITALS: BP 140/83; PULSE 103; TEMP 98.3; BMI 59.5
--- NOTE | 2022-12-16 15:34 | P.BASOAP ---
Subjective Progress Note Date: 12/16/22 She has lost 30 pounds in 3 to 4 weeks. No GERD. She has nasuea from the protein shakes and medications. She has appropriate incisional pain. No dysphagia. She reports mild nausea. She has not had her protein shake. Objective - Vital Signs Vital signs: Vital Signs Temp 98.3 F 12/16/22 15:05 Pulse 103 H 12/16/22 15:05 Resp BP 140/83 12/16/22 15:05 Pulse Ox FiO2 Intake & Output 12/15/22 12/16/22 12/16/22 18:59 06:59 18:59 Weight 129.274 kg Assessment/Plan Plan: Date: 12/16/22 Initial Weight: 133.81 kg Initial BMI: 61.6 Current Weight: 129.274 kg Current BMI: 59.5 Type of Surgery: Total Volume in Band: Previous Volume: Volume Removed: Volume Added: Band Size:
[2022-12-16 17:39] LABS: INR 1.1 (<1.2); Prothrombin Time 11.1 sec (9.0-12.0)
[2022-12-16 17:41] LABS: Partial Thromboplastin Time 20.4 sec (22.0-30.0)
[2022-12-17 02:21] LABS: % Iron Saturation 16.55 (12.00-45.00); ALT 38 U/L (8-44); AST 20 U/L (13-35); African American GFR (CKD) 105.8 (60.0-200.0); Albumin 3.9 g/dL (3.8-4.9); Albumin/Globulin Ratio 1.77 (1.60-3.17); Alkaline Phosphatase 75 U/L (41-126); BUN/Creat Ratio 8.07 Ratio (12.00-20.00); Blood Urea Nitrogen 6.8 mg/dL (9.0-27.0); Calcium 9.6 mg/dL (8.7-10.3); Carbon Dioxide 22.7 mmol/L (20.0-27.5); Chloride 103 mmol/L (96-109); Globulin 2.2 g/dL (1.6-3.3); Glucose 95 mg/dL (70-110); Iron 37 ug/dL (50-170); Non-African American GFR(CKD) 91.3 (60.0-200.0); Phosphorus 2.9 mg/dL (2.4-5.1); Potassium 3.4 mmol/L (3.5-5.5); Sodium 144 mmol/L (135-145); Total Iron Binding Capacity 221 ug/dL (228-460); Total Protein 6.1 g/dL (6.2-8.2)
[2022-12-17 02:35] LABS: Chol/HDL Ratio 3.65 Ratio; LDL Cholesterol,Calculated 93.8 mg/dL (0.0-131.0); VLDL Calculation 17.26 mg/dL (5.00-40.00)
[2022-12-17 03:38] LABS: HCT 45.4 % (37.2-46.3); HGB 14.4 g/dL (12.0-15.0); MCH 27.7 pg (27.0-32.0); MCHC 31.7 g/dL (32.0-37.0); MCV 87.3 fL (80.0-97.0); Mean Platelet Volume 12.9 fL (9.5-12.2); NRBC Per 100 WBC 0 /100 WBCS (0.0-0.0); Platelet Count 171 X 10*3/uL (140-440); WBC 8.56 X 10*3/uL (4.50-10.00)
[2022-12-17 13:14] LABS: Zinc, Serum 83 ug/dL (60-130)
[2022-12-18 05:40] LABS: Vitamin A 27 ug/dL (38-106)
[2022-12-18 11:25] LABS: Vit B1(Thiamine) 51 ug/L (38-122)
== END ==
LOC: BARWHC3 14:29
PROVIDERS: ATTEND Surgery Plastic and Reconstructive Surgery
DX: E66.01 Morbid (severe) obesity due to excess calories (principal); Z71.3 Dietary counseling and surveillance; E89.1 Postprocedural hypoinsulinemia; D50.8 Other iron deficiency anemias; E44.0 Moderate protein-calorie malnutrition; E44.1 Mild protein-calorie malnutrition; E45 Retarded development following protein-calorie malnutrition; N19 Unspecified kidney failure; T56.894D Toxic effect of other metals, undetermined, subsequent encounter; Z68.43 Body mass index [BMI] 50.0-59.9, adult
CPT/HCPCS: 84255; 84425; 80061; 80053; 82607; 82728; 82525; 82746; 83540; 83550; 83735; 84100; 84443; 84590; 84630; 85027; 85610; 85730; 82306; 83970; 83036; 97803; G0463; 99211

== ENCOUNTER → 2023-03-03 | Outpatient (CLI) | payer MEDICARE, OTHER ==
[2023-03-03 15:14] VITALS: BP 105/64; PULSE 87; TEMP 97.7; BMI 58.5
--- NOTE | 2023-03-03 15:52 | P.BASOAP ---
Subjective Progress Note Date: 03/03/23 She only ate 35 grams of protein. She is not eating enough protein. 35 grams daily. She is not keeping up and wants to lose 150 pounds. She only lost 30 pounds in 3 months. Objective - Vital Signs Vital signs: Vital Signs Temp 97.7 F 03/03/23 15:08 Pulse 87 03/03/23 15:08 Resp BP 105/64 03/03/23 15:08 Pulse Ox FiO2 Intake & Output 03/02/23 03/03/23 03/03/23 18:59 06:59 18:59 Weight 127.006 kg Assessment/Plan Plan: Date: 03/03/23 Initial Weight: 133.81 kg Initial BMI: 61.6 Current Weight: 127.006 kg Current BMI: 58.5 Type of Surgery: Total Volume in Band: Previous Volume: Volume Removed: Volume Added: Band Size:
[2023-03-03 17:57] LABS: Partial Thromboplastin Time 24.5 sec (22.0-30.0); Prothrombin Time 10.7 sec (9.0-12.0)
[2023-03-04 02:18] LABS: HCT 40.2 % (37.2-46.3); HGB 12.1 d/dL (12.0-15.0); MCH 27.8 pg (27.0-32.0); MCHC 30.1 d/dL (32.0-37.0); MCV 92.2 FL (80.0-97.0); NRBC Per 100 WBC 0 X 10*3/uL (0.00-0.01); Platelet Count 137 X 10*3/uL (140-440); RBC 4.36 X 10*6/uL (4.10-5.20); RDW 15.2 % (11.5-14.5); WBC 7.18 X 10*3/uL (4.50-10.00)
[2023-03-04 03:11] LABS: Prealbumin 13.4 mg/dL (18.0-42.0)
[2023-03-04 04:29] LABS: % Iron Saturation 12.16 (12.00-45.00); ALT 23 U/L (8-44); AST 12 U/L (13-35); Albumin 3.9 d/dL (3.8-4.9); Albumin/Globulin Ratio 2.17 Ratio (1.60-3.17); Alkaline Phosphatase 59 U/L (41-126); BUN/Creat Ratio 12.17 Ratio (12.00-20.00); Blood Urea Nitrogen 7.3 mg/dL (9.0-27.0); Calcium 9.2 mg/dL (8.7-10.3); Carbon Dioxide 24.5 mmol/L (21.6-31.8); Chloride 108 mmol/L (96-109); Chol/HDL Ratio 3.71 Ratio; Globulin 1.8 d/dL (1.6-3.3); Glucose 83 mg/dL (70-110); Iron 31 UG/DL (50-170); LDL Cholesterol,Calculated 103.7 mg/dL (0.0-131.0); Magnesium 1.8 mg/dL (1.5-2.4); Potassium 4.3 mmol/L (3.5-5.5); Sodium 145 mmol/L (135-145); Total Bilirubin 0.3 mg/dL (0.3-1.2); Total Iron Binding Capacity 255 UG/DL (228-460); Total Protein 5.7 d/dL (6.2-8.2)
[2023-03-04 09:42] LABS: Zinc, Serum 38 ug/dL (60-130)
[2023-03-05 06:54] LABS: Vitamin A 25 ug/dL (38-106)
[2023-03-05 07:08] LABS: Vit B1(Thiamine) 51 ug/L (38-122)
[2023-03-12 13:24] LABS: Selenium 75 mcg/L (63-160)
== END ==
LOC: BARWHC3 14:58
PROVIDERS: ATTEND Surgery Plastic and Reconstructive Surgery
DX: E66.01 Morbid (severe) obesity due to excess calories (principal); D50.8 Other iron deficiency anemias; E89.1 Postprocedural hypoinsulinemia; E55.9 Vitamin D deficiency, unspecified; K74.1 Hepatic sclerosis; N19 Unspecified kidney failure; T56.894A Toxic effect of other metals, undetermined, initial encounter; K50.90 Crohn's disease, unspecified, without complications; K90.9 Intestinal malabsorption, unspecified; Z71.3 Dietary counseling and surveillance; Z68.43 Body mass index [BMI] 50.0-59.9, adult
CPT/HCPCS: 84255; 84134; 84425; 80061; 80053; 82607; 82728; 82525; 82746; 83540; 83550; 83735; 84100; 84443; 84590; 84630; 85027; 85610; 85730; 82306; 83970; 83036; 97803; G0463; 99211

== ENCOUNTER → 2023-06-02 | Outpatient (CLI) | payer MEDICARE, OTHER ==
[2023-06-02 17:40] LABS: Partial Thromboplastin Time 24.6 sec (22.0-30.0); Prothrombin Time 10.7 sec (10.0-12.5)
[2023-06-02 22:38] LABS: % Iron Saturation 17.75 (12.00-45.00); ALT 21 U/L (8-44); AST 16 U/L (13-35); Albumin 3.9 g/dL (3.8-4.9); Albumin/Globulin Ratio 1.86 Ratio (1.60-3.17); Alkaline Phosphatase 71 U/L (41-126); BUN/Creat Ratio 16.83 Ratio (12.00-20.00); Blood Urea Nitrogen 10.1 mg/dL (9.0-27.0); Calcium 9.7 mg/dL (8.7-10.3); Carbon Dioxide 26.6 mmol/L (21.6-31.8); Chloride 104 mmol/L (96-109); Chol/HDL Ratio 3.31 Ratio; Globulin 2.1 g/dL (1.6-3.3); Glucose 86 mg/dL (70-110); Iron 52 UG/DL (50-170); LDL Cholesterol,Calculated 117.3 mg/dL (0.0-131.0); Magnesium 1.9 mg/dL (1.5-2.4); Phosphorus 3.6 mg/dL (2.4-5.1); Potassium 4.6 mmol/L (3.5-5.5); Sodium 142 mmol/L (135-145); Total Bilirubin 0.4 mg/dL (0.3-1.2); Total Iron Binding Capacity 293 UG/DL (228-460); VLDL Calculation 16.74 mg/dL (5.00-40.00)
[2023-06-03 03:08] LABS: HCT 42.9 % (37.2-46.3); HGB 13.3 g/dL (12.0-15.0); MCH 28.7 pg (27.0-32.0); MCV 92.7 FL (80.0-97.0); Mean Platelet Volume 10.6 FL (9.5-12.2); NRBC Per 100 WBC 0 X 10*3/uL (0.00-0.01); Platelet Count 181 X 10*3/uL (140-440); RBC 4.63 X 10*6/uL (4.10-5.20); RDW 14.8 % (11.5-14.5); WBC 7.61 X 10*3/uL (4.50-10.00)
[2023-06-03 04:45] LABS: Prealbumin 18.9 mg/dL (18.0-42.0)
[2023-06-03 10:30] LABS: Zinc, Serum 50 ug/dL (60-130)
[2023-06-04 08:41] LABS: Vitamin A 39 ug/dL (38-106)
[2023-06-04 09:14] LABS: Vit B1(Thiamine) 69 ug/L (38-122)
== END | disposition home or self-care (01) ==
LOC: LABWHC1 16:09
PROVIDERS: ATTEND Surgery Plastic and Reconstructive Surgery
DX: E66.01 Morbid (severe) obesity due to excess calories (principal); E89.1 Postprocedural hypoinsulinemia; D50.8 Other iron deficiency anemias; K91.2 Postsurgical malabsorption, not elsewhere classified; E44.0 Moderate protein-calorie malnutrition; E44.1 Mild protein-calorie malnutrition; E45 Retarded development following protein-calorie malnutrition; E46 Unspecified protein-calorie malnutrition; E55.9 Vitamin D deficiency, unspecified; K74.1 Hepatic sclerosis; N19 Unspecified kidney failure; T56.894A Toxic effect of other metals, undetermined, initial encounter; K50.90 Crohn's disease, unspecified, without complications
CPT/HCPCS: 36415; 80053; 80061; 82306; 82525; 82607; 82728; 82746; 83036; 83540; 83550; 83735; 83970; 84100; 84134; 84255; 84425; 84443; 84590; 84630; 85027; 85610; 85730

== ENCOUNTER → 2023-07-28 | Outpatient (CLI) | payer MEDICARE, OTHER ==
[2023-07-28 15:50] VITALS: BP 104/72; PULSE 79; TEMP 98.3; BMI 51.2
--- NOTE | 2023-07-28 16:06 | P.BASOAP ---
Subjective Progress Note Date: 07/28/23 DATE OF SERVICE: 07/28/23 CHIEF COMPLAINT: Status post sleeve gastrectomy HISTORY OF PRESENT ILLNESS: Maty Madden is a 33-year-old female status post sleeve gastrectomy 11/16/2022. She has lost 10 pounds in 2 months. Total loss of 70 pounds. She denies gastroesophageal reflux disease. She denies belly pain. No dysphagia. At her of 4 foot 10, her ideal body weight is 118 pounds. Her highest weight is 316 pounds, BMI 66.2. Today she comes in weighing 245 pounds from 303 pounds, 1 month ago. She has lost 59 pounds in 6 months. Her body mass index is 51.2. She is 127 pounds overweight. Lifetime weight loss 71 pounds. Percent lifetime excess weight loss of 36%. PHYSICAL EXAM: VITAL SIGNS: 4 feet 10 inches, 245 pounds. Body mass index 51.2 Vital Signs Temp 98.3 F 07/28/23 15:37 Pulse 79 07/28/23 15:37 Resp BP 104/72 07/28/23 15:37 Pulse Ox FiO2 GENERAL: Well-developed, pleasant female in no acute distress. HEENT: No scleral icterus. Extraocular movements were grossly intact. Moist buccal mucosa. NECK: Supple without lymphadenopathy. CHEST: Nonlabored respirations. Equal bilateral excursions. CARDIOVASCULAR: Regular rate and rhythm. 2+ radial pulses ABDOMEN: Protuberant, soft, nontender, nondistended. MUSCULOSKELETAL: Bilateral lower extremity edema 2+. No clubbing or cyanosis. NEURO: No focal or lateralizing signs. Cranial nerves II through XII grossly within normal limits. PSYCH: Flat affect. Alert and oriented to person, place, and time. SKIN: Well-perfused. Good skin turgor. LABS: Reviewed. Zinc low. Folate low. ASSESSMENT: 1. Morbid obesity due to excess calories. 2. Body mass index reduced from 66.2 down 51.2 3. Chronic lower back pain. 4. Hypertension. 5. Obstructive sleep apnea. 6. Anxiety. 7. Depression. 8. Previous potential weight loss. 9. Dietary surveillance and counseling. 10. Family history of morbid obesity. 11. Family history of diabetes type 1. 12. Family history of diabetes type 2. 13. Family history of heart attack. 14. Vitamin D deficiency 15. Cognitive delay 16. Lymphedema 17. Diabetes type II non-insulin dependent 18. Migraines 19. Gastroparesis 20. Iron deficiency 21. Zinc deficiency 22. Hyperparathyroidism 23. Hypoalbuminemia 24. Nicotine exposure 25. Folate deficiency PLAN: 1. Recommend steps counter 10,000 2. Recommend bariatric labs Objective - Vital Signs Vital signs: Vital Signs Temp 98.3 F 07/28/23 15:37 Pulse 79 07/28/23 15:37 Resp BP 104/72 07/28/23 15:37 Pulse Ox FiO2 Intake & Output 07/27/23 07/28/23 07/28/23 18:59 06:59 18:59 Weight 111.13 kg - Labs CBC & Chem 7: 07/28/23 16:52 07/28/23 16:52 Assessment/Plan Plan: Date: 07/28/23 Initial Weight: 133.81 kg Initial BMI: 61.6 Current Weight: 111.13 kg Current BMI: 51.2 Type of Surgery: Total Volume in Band: Previous Volume: Volume Removed: Volume Added: Band Size:
[2023-07-28 18:14] LABS: Partial Thromboplastin Time 26.1 sec (22.0-30.0); Prothrombin Time 11.2 sec (10.0-12.5)
[2023-07-29 02:11] LABS: HCT 41.3 % (37.2-46.3); MCH 28.8 pg (27.0-32.0); MCHC 31.5 g/dL (32.0-37.0); MCV 91.6 FL (80.0-97.0); Mean Platelet Volume 11.8 FL (9.5-12.2); NRBC Per 100 WBC 0 X 10*3/uL (0.00-0.01); Platelet Count 166 X 10*3/uL (140-440); RBC 4.51 X 10*6/uL (4.10-5.20); RDW 14.2 % (11.5-14.5); WBC 7.88 X 10*3/uL (4.50-10.00)
[2023-07-29 02:17] LABS: Prealbumin 13.3 mg/dL (18.0-42.0)
[2023-07-29 03:42] LABS: % Iron Saturation 6.01 (12.00-45.00); ALT 15 U/L (8-44); AST 9 U/L (13-35); Albumin 4.1 g/dL (3.8-4.9); Albumin/Globulin Ratio 1.86 Ratio (1.60-3.17); Alkaline Phosphatase 73 U/L (41-126); BUN/Creat Ratio 12.29 Ratio (12.00-20.00); Blood Urea Nitrogen 8.6 mg/dL (9.0-27.0); Calcium 9.2 mg/dL (8.7-10.3); Carbon Dioxide 23.8 mmol/L (21.6-31.8); Chloride 104 mmol/L (96-109); Chol/HDL Ratio 2.86 Ratio; Globulin 2.2 g/dL (1.6-3.3); Glucose 82 mg/dL (70-110); Iron 17 UG/DL (50-170); LDL Cholesterol,Calculated 84.1 mg/dL (0.0-131.0); Phosphorus 2.9 mg/dL (2.4-5.1); Potassium 4.6 mmol/L (3.5-5.5); Sodium 140 mmol/L (135-145); Total Bilirubin 0.4 mg/dL (0.3-1.2); Total Iron Binding Capacity 283 UG/DL (228-460); Total Protein 6.3 g/dL (6.2-8.2)
[2023-07-29 13:29] LABS: Zinc, Serum 55 ug/dL (60-130)
[2023-07-30 06:30] LABS: Vitamin A 26 ug/dL (38-106)
[2023-07-30 09:42] LABS: Vit B1(Thiamine) 64 ug/L (38-122)
[2023-07-31 20:58] LABS: Selenium 97 mcg/L (63-160)
== END ==
LOC: BARWHC3 14:31
PROVIDERS: ATTEND Surgery Plastic and Reconstructive Surgery
DX: E66.01 Morbid (severe) obesity due to excess calories (principal); D50.8 Other iron deficiency anemias; K90.89 Other intestinal malabsorption; E55.9 Vitamin D deficiency, unspecified; K74.1 Hepatic sclerosis; N19 Unspecified kidney failure; K50.90 Crohn's disease, unspecified, without complications; E89.1 Postprocedural hypoinsulinemia; G89.29 Other chronic pain; G47.33 Obstructive sleep apnea (adult) (pediatric); I10 Essential (primary) hypertension; F41.9 Anxiety disorder, unspecified; F32.A Depression, unspecified; R63.4 Abnormal weight loss; R41.89 Other symptoms and signs involving cognitive functions and awareness; I89.0 Lymphedema, not elsewhere classified; G43.909 Migraine, unspecified, not intractable, without status migrainosus; E11.43 Type 2 diabetes mellitus with diabetic autonomic (poly)neuropathy; K31.84 Gastroparesis; D50.9 Iron deficiency anemia, unspecified; D52.9 Folate deficiency anemia, unspecified; E60 Dietary zinc deficiency; E21.3 Hyperparathyroidism, unspecified; E88.09 Other disorders of plasma-protein metabolism, not elsewhere classified; Z83.49 Family history of other endocrine, nutritional and metabolic diseases; Z83.3 Family history of diabetes mellitus; Z82.49 Family history of ischemic heart disease and other diseases of the circulatory system; Z71.3 Dietary counseling and surveillance; Z68.43 Body mass index [BMI] 50.0-59.9, adult; Z77.22 Contact with and (suspected) exposure to environmental tobacco smoke (acute) (chronic); Z79.890 Hormone replacement therapy
CPT/HCPCS: 84255; 84134; 84425; 80061; 80053; 82607; 82728; 82525; 82746; 83540; 83550; 83735; 84100; 84443; 84590; 84630; 85027; 85610; 85730; 82306; 83970; 83036; 97802; G0463; 99211

== ENCOUNTER → 2023-12-01 | Outpatient (CLI) | payer MEDICARE, OTHER ==
[2023-12-01 16:13] VITALS: BP 102/69; PULSE 73; RESP 14; TEMP 97.8; BMI 53.1
--- NOTE | 2023-12-01 16:37 | P.BASOAP ---
Subjective Progress Note Date: 12/01/23 Her highest is 349 pounds. She lost almost 100 pounds. She is 1 year out. She reports NO GERD. She is trying to lose weight. She does not count steps. She is not very active. Her protein intake was "good," She is having constipation. She is on Miralax. She had blood in stools. She strains with BM. Recommend colonoscopy/ Objective - Vital Signs Vital signs: Vital Signs Temp 97.8 F 12/01/23 15:31 Pulse 73 12/01/23 15:31 Resp 14 12/01/23 15:31 BP 102/69 12/01/23 15:31 Pulse Ox FiO2 Intake & Output 11/30/23 12/01/23 12/01/23 18:59 06:59 18:59 Weight 115.212 kg Assessment/Plan Plan: Date: 12/01/23 Initial Weight: 133.81 kg Initial BMI: 61.6 Current Weight: 115.212 kg Current BMI: 53.1 Type of Surgery: Total Volume in Band: Previous Volume: Volume Removed: Volume Added: Band Size:
== END ==
LOC: BARWHC3 14:48
PROVIDERS: ATTEND Surgery Plastic and Reconstructive Surgery
DX: E66.09 Other obesity due to excess calories (principal); Z68.43 Body mass index [BMI] 50.0-59.9, adult; Z71.3 Dietary counseling and surveillance
CPT/HCPCS: 97803; G0463; 99211

== ENCOUNTER → 2024-05-03 | Outpatient (CLI) | payer MEDICARE, OTHER ==
[2024-05-03 16:20] LABS: INR 0.9 (<1.2); Partial Thromboplastin Time 23.9 sec (22.0-30.0); Prothrombin Time 10.5 sec (10.0-12.5)
[2024-05-03 18:27] LABS: HCT 42.9 % (37.2-46.3); HGB 13.5 g/dL (12.0-15.0); MCH 27.8 pg (27.0-32.0); MCHC 31.5 g/dL (32.0-37.0); MCV 88.3 FL (80.0-97.0); Mean Platelet Volume 10.4 FL (9.5-12.2); Platelet Count 195 X 10*3/uL (140-440); RBC 4.86 X 10*6/uL (4.10-5.20); RDW 13.7 % (11.5-14.5); WBC 7.93 X 10*3/uL (4.50-10.00)
[2024-05-03 18:28] LABS: NRBC Per 100 WBC 0 X 10*3/uL (0.00-0.01)
[2024-05-03 23:22] LABS: Prealbumin 21.6 mg/dL (18.0-42.0)
[2024-05-03 23:41] LABS: % Iron Saturation 13.27 (12.00-45.00); ALT 13 U/L (8-44); AST 11 U/L (13-35); Albumin 4.1 g/dL (3.8-4.9); Albumin/Globulin Ratio 1.71 Ratio (1.60-3.17); Alkaline Phosphatase 75 U/L (41-126); BUN/Creat Ratio 22.43 Ratio (12.00-20.00); Blood Urea Nitrogen 15.7 mg/dL (9.0-27.0); Calcium 9.5 mg/dL (8.7-10.3); Carbon Dioxide 24.4 mmol/L (21.6-31.8); Chloride 105 mmol/L (96-109); Chol/HDL Ratio 2.66 Ratio; Ferritin 65.2 ng/mL (10.0-291.0); Globulin 2.4 g/dL (1.6-3.3); Glucose 96 mg/dL (70-110); Iron 41 UG/DL (50-170); LDL Cholesterol,Calculated 94.2 mg/dL (0.0-131.0); Magnesium 1.8 mg/dL (1.5-2.4); Phosphorus 4.1 mg/dL (2.4-5.1); Potassium 5.1 mmol/L (3.5-5.5); Sodium 140 mmol/L (135-145); Total Bilirubin 0.3 mg/dL (0.3-1.2); Total Iron Binding Capacity 309 UG/DL (228-460); Total Protein 6.5 g/dL (6.2-8.2); VLDL Calculation 14.42 mg/dL (5.00-40.00)
[2024-05-04 15:51] LABS: Zinc, Serum 53 ug/dL (60-130)
[2024-05-05 07:47] LABS: Vitamin A 46 ug/dL (38-106)
[2024-05-08 08:35] LABS: Vit B1(Thiamine) 63 ug/L (38-122)
== END | disposition home or self-care (01) ==
LOC: LABWHC1 15:27
PROVIDERS: ATTEND Surgery Plastic and Reconstructive Surgery
CPT/HCPCS: 36415; 80053; 80061; 82306; 82525; 82607; 82728; 82746; 83036; 83540; 83550; 83735; 83970; 84100; 84134; 84255; 84425; 84443; 84590; 84630; 85027; 85610; 85730

== ENCOUNTER → 2024-05-03 | Outpatient (CLI) | payer MEDICARE, OTHER ==
[2024-05-03 15:03] VITALS: BP 117/82; PULSE 77; RESP 16; TEMP 97.9; BMI 54.9
--- NOTE | 2024-05-03 15:14 | P.BASOAP ---
Subjective Progress Note Date: 05/03/24 She has been gaining weight in the past 10 months and 2 visits. Protein shake she is not doing well. She is getting 40 pounds. She always forgets her food journal. Her last blood work at 1 year done in November. Labs in Jul shows moderate and needs labs and food journal. COlonoscopy for change in bowel habits. Objective - Vital Signs Vital signs: Vital Signs Temp 97.9 F 05/03/24 14:52 Pulse 77 05/03/24 14:52 Resp 16 05/03/24 14:52 BP 117/82 05/03/24 14:52 Pulse Ox FiO2 Intake & Output 05/02/24 05/03/24 05/03/24 18:59 06:59 18:59 Weight 119.295 kg Assessment/Plan Plan: Date: 05/03/24 Initial Weight: 133.81 kg Initial BMI: 61.6 Current Weight: 119.295 kg Current BMI: 54.9 Type of Surgery: Total Volume in Band: Previous Volume: Volume Removed: Volume Added: Band Size:
== END ==
LOC: BARWHC3 13:48
PROVIDERS: ATTEND Surgery Plastic and Reconstructive Surgery
DX: E66.01 Morbid (severe) obesity due to excess calories (principal); Z68.43 Body mass index [BMI] 50.0-59.9, adult
CPT/HCPCS: 99211

== ENCOUNTER → 2024-06-07 | Outpatient (CLI) | payer MEDICARE, OTHER ==
[2024-06-07 13:47] VITALS: BP 107/74; PULSE 87; RESP 16; TEMP 97.6; BMI 54.1
--- NOTE | 2024-06-07 14:15 | P.BASOAP ---
Subjective Progress Note Date: 06/07/24 She comes in with weigh loss of 4 pounds. SHe has her journal. Protein intake is 50 g. Recommend adding 20 grams. Serving size described. She has constipation. Start lactulose. Labs reviewed with Zinc and Vitamin D. FU Objective - Vital Signs Vital signs: Vital Signs Temp 97.6 F 06/07/24 13:39 Pulse 87 06/07/24 13:39 Resp 16 06/07/24 13:39 BP 107/74 06/07/24 13:39 Pulse Ox FiO2 Intake & Output 06/06/24 06/07/24 06/07/24 18:59 06:59 18:59 Weight 117.48 kg Assessment/Plan Plan: Date: 06/07/24 Initial Weight: 133.81 kg Initial BMI: 61.6 Current Weight: 117.48 kg Current BMI: 54.1 Type of Surgery: Total Volume in Band: Previous Volume: Volume Removed: Volume Added: Band Size:
== END ==
LOC: BARWHC3 13:30
PROVIDERS: ATTEND Surgery Plastic and Reconstructive Surgery
DX: E66.01 Morbid (severe) obesity due to excess calories (principal); K59.00 Constipation, unspecified; Z68.43 Body mass index [BMI] 50.0-59.9, adult
CPT/HCPCS: 99211

== ENCOUNTER 2024-09-18 07:34 | Day surgery (SDC) | payer MEDICARE, OTHER ==
[2024-09-14 14:39] VITALS: BMI 52.4
[~2024-09-18 07:34] MED LIST: LACTATED RINGERS 1,000 ML IV SCH
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
[2024-09-18] MEDS: IV FLUID CONTINUATION 1,000 ML IV ONE (07:49)
[2024-09-18 08:06] VITALS: RESP 16; TEMP 97.3
[2024-09-18] MEDS ORDERED: LIDOCAINE 1% INJ 10MG/ML (20 ML MDV) ONE (08:26)
[2024-09-18] MEDS ORDERED: PROPOFOL 10 MG/ML 20 ML VIAL IV ONE (08:26)
[2024-09-18 09:19] VITALS: BP 116/79; PULSE 64
--- NOTE | 2024-09-18 09:24 | P.PCN ---
Date of Procedure: 09/18/24 Description of Procedure: PREOPERATIVE DIAGNOSIS: Change in bowel habits POSTOPERATIVE DIAGNOSIS: Tubular adenoma ileocecal valve/ascending colon Internal hemorrhoids, grade 2 Microscopic colitis OPERATION: Colonoscopy to the ileocecal valve and appendiceal orifice, cecum Colonoscopy with hot snare polypectomy Colonoscopy with cold forceps biopsy, random for microscopic colitis SURGEON: Sulema Concepcion MD. ANESTHESIA: MAC. INDICATIONS: The patient is an 34-year-old female who presents with change in bowel habits and abdominal pain for several months. Benefits and risks were described and informed consent was obtained. DESCRIPTION OF PROCEDURE: The patient had undergone Suprep. The patient had been brought into the operating room and laid in the left lateral decubitus position. After adequate intravenous sedation, the rectum was examined with 2% lidocaine jelly. External hemorrhoids were encountered. The rectal tone was within normal limits. No lesions were palpated in the rectal vault. An Olympus colonoscope was advanced until the cecum, ileocecal valve and appendiceal orifice were clearly viewed. The prep was fair. No sigmoid diverticulosis was encountered. Colonic polyps were found and removed. No evidence of focal colitis was found. Retroflexion of the scope demonstrated grade 2 internal hemorrhoids without active bleeding or inflammation. The colon was desufflated. The patient had tolerated the procedure well. Withdrawal time was over 6 minutes. FINDINGS: Aronchick preparation quality scale 3 (1-5) Internal hemorrhoids, grade 2 External hemorrhoids, grade 2. No arteriovenous malformations. No sigmoid diverticulosis Random cold forcep biopsies obtained for microscopic colitis Removal of 1 polyps: - Snare polypectomy ileocecal valve/descending colon, 5 mm tubulovillous adenoma No focal colitis. RECOMMENDATIONS: Repeat colonoscopy in 3 years, 2027 Plan - Discharge Summary Discharge Rx Participant: No New Discharge Prescriptions: Continue diphenhydrAMINE HCL [Benadryl] 25 mg PO DAILY PRN PRN Reason: allergies Multivitamins, Thera [Multivitamin (formulary)] 1 tab PO DAILY L.acidoph,Paracasei, B.lactis [Probiotic] 1 each PO DAILY Ergocalciferol [Vitamin D2 (1250 Mcg = 26392 Iu)] 1,250 mcg PO DAILY Pantoprazole [Protonix] 1 cap PO DAILY acetaZOLAMIDE [Diamox Sequels] 500 mg PO BID Plecanatide [Trulance] 1 cap PO BID Lactulose [Cephulac] 30 ml PO BID #500 ml Rimegepant Sulfate [Nurtec Odt] 75 mg PO BID Amitriptyline HCl 25 mg PO HS Vyeppi 300 mg IV Q90D Discharge Medication List Rimegepant Sulfate [Nurtec Odt] 75 mg PO BID 11/26/21 [History] diphenhydrAMINE HCL [Benadryl] 25 mg PO DAILY PRN 12/16/22 [History] Ergocalciferol [Vitamin D2 (1250 Mcg = 92574 Iu)] 1,250 mcg PO DAILY 03/03/23 [History] L.acidoph,Paracasei, B.lactis [Probiotic] 1 each PO DAILY 03/03/23 [History] Multivitamins, Thera [Multivitamin (formulary)] 1 tab PO DAILY 03/03/23 [History] Amitriptyline HCl 25 mg PO HS 05/03/24 [History] Pantoprazole [Protonix] 1 cap PO DAILY 05/03/24 [History] Plecanatide [Trulance] 1 cap PO BID 05/03/24 [History] acetaZOLAMIDE [Diamox Sequels] 500 mg PO BID 05/03/24 [History] Lactulose [Cephulac] 30 ml PO BID #500 ml 06/07/24 [Rx] Vyeppi 300 mg IV Q90D 09/14/24 [History] [facility]Ref[facility] [place] [facility] [place]24 3:00 pm Patient Instructions/Handouts: Colorectal Polyps (GEN) Activity/Diet/Wound Care/Special Instructions: Repeat colonoscopy 3 years, 2027 Discharge Disposition: HOME SELF-CARE
== END 2024-09-18 10:13 | disposition home or self-care (01) ==
LOC: ORWHC2ENDO 07:34
PROVIDERS: ATTEND Surgery Plastic and Reconstructive Surgery
DX: K64.1 Second degree hemorrhoids (principal); K64.4 Residual hemorrhoidal skin tags; D12.2 Benign neoplasm of ascending colon; K21.9 Gastro-esophageal reflux disease without esophagitis; G93.2 Benign intracranial hypertension
CPT/HCPCS: 81025; 45380; 45385; J2003; J2704; 88305

== ENCOUNTER → 2024-10-04 | Outpatient (CLI) | payer MEDICARE, OTHER ==
[2024-10-04 14:45] VITALS: BP 118/80; PULSE 86; RESP 16; TEMP 98.6
--- NOTE | 2024-10-04 15:48 | P.BASOAP ---
Subjective Progress Note Date: 10/04/24 She is wating over 3000mg sodium with 120 grams of protein and 60 oz of water. Adjust to 60 to 80 grams protein, 100 oz of water and limit sodium 2000 mg daily. FYU 1 month Objective - Vital Signs Vital signs: Vital Signs Temp 98.6 F 10/04/24 14:32 Pulse 86 10/04/24 14:32 Resp 16 10/04/24 14:32 BP 118/80 10/04/24 14:32 Pulse Ox FiO2 Intake & Output 10/03/24 10/04/24 10/04/24 18:59 06:59 18:59 Weight 125.191 kg Assessment/Plan Plan: Date: 10/04/24 Initial Weight: 133.81 kg Initial BMI: Current Weight: 125.191 kg Current BMI: Type of Surgery: Total Volume in Band: Previous Volume: Volume Removed: Volume Added: Band Size:
== END ==
LOC: BARWHC3 14:20
PROVIDERS: ATTEND Surgery Plastic and Reconstructive Surgery
DX: E66.01 Morbid (severe) obesity due to excess calories (principal)
CPT/HCPCS: 99211

== ENCOUNTER → 2025-01-03 | Outpatient (CLI) | payer MEDICARE, OTHER ==
--- NOTE | 2025-01-03 14:41 | P.BASOAP ---
Subjective Progress Note Date: 01/03/25 Patient left without being seen Assessment/Plan Plan: Date: Initial Weight: 133.81 kg Initial BMI: Current Weight: Current BMI: Type of Surgery: Total Volume in Band: Previous Volume: Volume Removed: Volume Added: Band Size:
[2025-01-03 17:27] VITALS: BP 126/81; PULSE 80; TEMP 97.7; BMI 61.8
[2025-01-03 17:46] VITALS: RESP 16
== END ==
LOC: BARWHC3 12:35
PROVIDERS: ATTEND Surgery Plastic and Reconstructive Surgery
DX: E66.01 Morbid (severe) obesity due to excess calories (principal); Z68.44 Body mass index [BMI] 60.0-69.9, adult
CPT/HCPCS: 99211